=== PATIENT | female | born 2000 | race Caucasian/White ===

== ENCOUNTER → 2019-07-03 | Outpatient (CLI) | payer MEDICAID ==
--- NOTE | 2019-07-03 16:55 | RAD ---
Examination: PREG MORE THAN OR EQ TO 14 WKS History: Uterine size and date discrepancy Comparison/Correlation: OB ultrasound report dated 02/23/2019 Findings: OB ultrasound exam was performed. Single living intrauterine gestation with cephalic lie is present. Male gender noted. heart rate is 182 bpm. movement and cardiac activity noted. Three-vessel cord insertion is visualized by color Doppler imaging only. Four-chamber heart noted. Fluid within the urinary bladder is evident. stomach, kidneys, spine, and brain noted. Extremities are partially visualized. Maternal cervical length is 3.9 cm. Amniotic fluid index is normal measuring 10.3 cm. Biparietal diameter is 9.06 cm corresponding to 36 weeks 5 days. Head circumference is 32.53 cm corresponding to 36 weeks 6 days Abdominal circumference is 33.09 cm corresponding to 37 weeks 0 days Femur length is 7.16 cm corresponding 36 weeks 5 days Estimated weight is 3055 g Gestational age by ultrasound 36 weeks 6 days. EDC by ultrasound is 07/25/2019. Impression: Single living intrauterine gestation with cephalic lie is present. Average ultrasound age of 36 weeks 6 days is identified and this is one week less than expected by last menstrual period. Electronically signed by: Julius Ventura MD (07/03/2019 4:52 PM) [facility]– [place]
== END | disposition home or self-care (01) ==
LOC: US 13:16
PROVIDERS: ATTEND Obstetrics & Gynecology
DX: O26.843 Uterine size-date discrepancy, third trimester (principal); Z3A.36 36 weeks gestation of pregnancy
CPT/HCPCS: 76805

== ENCOUNTER 2019-10-28 03:57 | Emergency (ER) | payer SELFPAY ==
[~2019-10-28] VITALS: Ht 162.6 cm; Wt 83.9 kg
[2019-10-28] MEDS ORDERED: diphenhydrAMINE 50 MG/ML VIAL IVP ONE (04:15)
[2019-10-28] MEDS ORDERED: ONDANSETRON PF 4 MG/2 ML VIAL. IVP ONE (04:15)
[2019-10-28] MEDS ORDERED: IV NORMAL SALINE 1,000ML 1,000 ML IV ONE (04:15)
--- NOTE | 2019-10-28 04:27 | PHYS DOC ---
Adult General Chief Complaint Chief Complaint: NAUSEA/VOMITING/DIARRHEA HPI HPI 19-year-old female presents with left upper quadrant abdominal pain, nausea, and vomiting. The patient started to have this moderate cramping pain and nausea around 1:30 AM. She was about to go to bed where it started. She last ate dinner at 7:00. She smoked marijuana at 8:00. Patient has a history of cyclic vomiting. She denies trauma or injury. She denies fever or chills. She denies other drug use. Denies . (YAMIL WESTON DO) Review of Systems Review of Systems Constitutional: Denies fever or chills [] Eyes: Denies change in visual acuity, redness, or eye pain [] HENT: Denies nasal congestion or sore throat [] Respiratory: Denies cough or shortness of breath [] Cardiovascular: No additional information not addressed in HPI [] GI: Upper quadrant abdominal pain, nausea, vomiting. Denies bloody stools or diarrhea [] : Denies dysuria or hematuria [] Musculoskeletal: Denies back pain or joint pain [] Integument: Denies rash or skin lesions [] Neurologic: Denies headache, focal weakness or sensory changes [] Endocrine: Denies polyuria or polydipsia [] All other systems were reviewed and found to be within normal limits, except as documented in this note. (YAMIL WESTON DO) Current Medications Current Medications Current Medications Medications (Trade) Dose Ordered Sig/Bianca Start Time Stop Time Status Last Admin Dose Admin Diphenhydramine HCl (Benadryl) 50 mg 1X ONCE 10/28/19 04:15 10/28/19 04:16 UNV Ondansetron HCl (Zofran) 8 mg 1X ONCE 10/28/19 04:15 10/28/19 04:16 UNV Sodium Chloride 1,000 ml @ 1,000 mls/hr 1X ONCE 10/28/19 04:15 10/28/19 05:14 UNV (YAMIL WESTON DO) Physical Exam Physical Exam Constitutional: Well developed, obese, well nourished, mild acute distress, non- toxic appearance. [] HENT: Normocephalic, atraumatic, bilateral external ears normal, oropharynx moist, no oral exudates, nose normal. [] Eyes: PERRLA, EOMI, conjunctiva normal, no discharge. [] Neck: Normal range of motion, no tenderness, supple, no stridor. [] Cardiovascular: Heart rate regular rhythm, no murmur [] Lungs & Thorax: Bilateral breath sounds clear to auscultation [] Abdomen: Bowel sounds normal, soft, mild LUQ tenderness, no masses, no pulsatile masses. [] Skin: Warm, dry, no erythema, no rash. [] Back: No tenderness, no CVA tenderness. [] Extremities: No tenderness, no cyanosis, no clubbing, ROM intact, no edema. [] Neurologic: Alert and oriented X 3, normal motor function, normal sensory function, no focal deficits noted. [] Psychologic: Affect dramatic, judgement normal, mood anxious [] (YAMIL WESTON DO) EKG EKG [] (YAMIL WESTON DO) Radiology/Procedures Radiology/Procedures [] (YAMIL WESTON DO) Course & Med Decision Making Course & Med Decision Making Pertinent Labs and Imaging studies reviewed. (See chart for details) The patient was given 50 mg Benadryl, liter of normal saline, 8 mg Zofran, and 30 mg of Toradol. Her vomiting was controlled she continued to have left sided abdominal pain. CT scan preliminary read shows possible lesion in the left adnexa. I ordered a pelvic ultrasound rule out ovarian torsion. Her labs are snapped in for a white count 25. Differential is normal. She does not have a fever. I'm signing the patient out to Dr. Blanco at 0600 for further management and final disposition. [] (YAMIL WESTON DO) Course & Med Decision Making Wet read of the ultrasound showed a dominant left ovary follicle but no torsion. I went to check on the patient she was resting comfortably she said she felt better she's had multiple episodes of diarrhea given the CT scan findings I think that she has a viral gastroenteritis most likely. Noted the leukocytosis but the remainder the CT scan does not show any acute bacterial infection and the patient was feeling better in the emergency room and likely was the margination an otherwise healthy young female. Return precautions discussed in detail and she voiced understanding of instructions. (CARLOTTA BLANCO MD) Dragon Disclaimer Dragon Disclaimer This electronic medical record was generated, in whole or in part, using a voice recognition dictation system. (WESTON,YAMIL DO) Departure Departure: Impression: Primary Impression: Marijuana use Additional Impression: Abdominal pain Disposition: HOME, SELF-CARE Condition: STABLE Referrals: JONA CONTRERAS MD (PCP) Patient Instructions: Marijuana Abuse-Brief Scripts Ondansetron (ONDANSETRON ODT) 4 Mg Tab.rapdis 1 TAB PO PRN Q6-8HRS PRN for NAUSEA/VOMITING, #16 TAB Prov: CARLOTTA BLANCO MD 10/28/19 Problem Qualifiers Additional Impression: Abdominal pain Abdominal location: left upper quadrant Qualified Codes: R10.12 - Left upper quadrant pain YAMIL WESTON DO Oct 28, 2019 04:27 CARLOTTA BLANCO MD Oct 28, 2019 07:31
[2019-10-28] MEDS ORDERED: KETOROLAC 30 MG/ML VIAL. IVP ONE (04:30)
[2019-10-28 05:20] LABS: BASO # 0.1 x10^3/uL (0.0-0.2); BASO % 1 % (0-3); EOS % 0 % (0-3); HEMOGLOBIN 12.6 g/dL (12.0-15.5); LYMPH # 1.9 x10^3/uL (1.0-4.8); LYMPH % 7 % (24-48); MEAN CORPUSCULAR HEMOGLOBIN 21 pg (25-35); MEAN CORPUSCULAR HGB CONC 31 g/dL (31-37); MEAN CORPUSCULAR VOLUME 68 fL (79-100); MONO % 4 % (0-9); NEUT # 22.6 x10^3uL (1.8-7.7); NEUT % 88 % (31-73); PLATELET COUNT 287 x10^3/uL (140-400); RED BLOOD COUNT 5.88 x10^6/uL (3.50-5.40); RED CELL DISTRIBUTION WIDTH 15.3 % (11.5-14.5); WHITE BLOOD COUNT 25.7 x10^3/uL (4.0-11.0)
[2019-10-28 05:29] LABS: CALCIUM 9.1 mg/dL (8.5-10.1); CREATININE 0.9 mg/dL (0.6-1.0); GFR 79.8; POTASSIUM 3.7 mmol/L (3.5-5.1)
[2019-10-28] MEDS ORDERED: CONTRAST GIVEN MC PRN (05:30)
[2019-10-28 05:33] LABS: ALBUMIN 3.7 g/dL (3.4-5.0); ALBUMIN/GLOBULIN RATIO 0.9 (1.0-1.7); TOTAL BILIRUBIN 0.3 mg/dL (0.2-1.0); TOTAL PROTEIN 7.7 g/dL (6.4-8.2)
[2019-10-28 05:34] LABS: BARBITURATES NEG (NEG); BENZODIAZEPINES NEG (NEG); CANNABINOIDS POS (NEG); COCAINE NEG (NEG); METHADONE NEG (NEG); OPIATES NEG (NEG); PHENCYCLIDINE NEG (NEG)
[2019-10-28 05:41] LABS: BILIRUBIN,URINE NEG (NEG); CLARITY,URINE HAZY; COLOR,URINE AMBER; GLUCOSE,URINE NEG (NEG); NITRITE,URINE NEG (NEG); RBC,URINE OCC /HPF (0-2); UROBILINOGEN,URINE 0.2 mg/dL (0.2 mg/dL)
[2019-10-28 05:42] LABS: AMORPHOUS SEDIMENT,UR PRESENT /HPF; BACTERIA,URINE MOD /HPF (0-FEW); SQUAMOUS EPITHELIAL CELL,UR MOD /LPF
[2019-10-28 05:47] VITALS: BP 128/69
[2019-10-28 05:49] LABS: AMPHETAMINE/METHAMPHETAMINE NEG (NEG)
[2019-10-28] MEDS ORDERED: MORPHINE SULFATE 4 MG/ML DISP.SYRIN. IV ONE (06:00)
[2019-10-28] MEDS ORDERED: IOHEXOL 300 MG/ML 75 ML VIAL. IV ONE (06:00)
[2019-10-28 06:23] LABS: % BANDS 8 % (0-9); % LYMPHS 8 % (24-48); % MONOS 2 % (0-10); % SEGS 82 % (35-66); PLT ESTIMATE ADEQUATE (ADEQUATE)
[2019-10-28 06:24] LABS: HYPOCHROMIA SLIGHT; OVALOCYTES OCC
[2019-10-28 06:25] LABS: ANISOCYTOSIS SLIGHT; MICROCYTOSIS MOD; POLYCHROMASIA SLIGHT; TEAR DROP CELLS OCC
--- NOTE | 2019-10-28 06:29 | RAD ---
CT abdomen and pelvis with contrast: Reason for examination: Left upper quadrant and flank pain. Helical images were obtained through the abdomen pelvis with intravenous administration of 75 cc Omnipaque 300. Reconstruction was performed in sagittal and coronal planes. Exposure: One or more of the following individualized dose reduction techniques were utilized for this examination: 1. Automated exposure control 2. Adjustment of the mA and/or kV according to patient size 3. Use of iterative reconstruction technique. The lung bases are clear. The heart size is normal with no pericardial effusion. No abnormality seen at the liver, spleen, adrenal glands gallbladder or pancreas. The abdominal aorta and inferior vena cava show no acute abnormalities. The colon shows no diverticulosis or diverticulitis or colitis. No abnormality seen at the appendix. The small intestinal tract shows shows some fluid-filled small intestine in the pelvis but no abnormal dilatation or wall thickening. No abnormality seen at the stomach or duodenum. No bowel obstruction is seen. The kidneys show no renal masses, renal calculi, hydronephrosis or evidence of obstructive uropathy. The bladder is not distended. No abnormality seen at the uterus. The left ovary appears to contain a cystic lesion measuring approximately 1.7 cm in size. No free fluid or other adnexal masses are seen. No free air is seen in the abdomen or pelvis. No acute bony abnormalities are seen. IMPRESSION: 1.7 cm cystic-appearing lesion in the left ovary. Fluid-filled loops of small intestine within the pelvis but no abnormal dilatation or wall thickening seen. No other focal abnormality seen in the abdomen or pelvis. Electronically signed by: Yaz Ballesteros MD (10/28/2019 6:25 AM) [id number]
[2019-10-28] MEDS ORDERED: ONDA4TAB12 PO (07:29)
--- NOTE | 2019-10-28 07:48 | RAD ---
US PELVIS DATE: 10/28/2019 5:54 AM HISTORY: Left sided abdominal pain. LMP last week. Negative urine hCG. COMPARISON: CT abdomen pelvis 10/28/2019. TECHNIQUE: Transabdominal pelvic ultrasound was performed. FINDINGS: The uterus measures 8.4 x 4.4 x 3.3 cm. The myometrium demonstrates normal echogenicity without focal lesion. The endometrial echo measures 8 mm. The right ovary measures 3.6 x 1.8 x 3.1 cm. The left ovary measures 3.7 x 2.4 cm. The bilateral ovaries are physiologic in appearance. Left ovarian physiologic cyst measuring 1.5 cm. Normal vascularity in the bilateral ovaries by color Doppler examination. No free fluid. IMPRESSION: No evidence of ovarian torsion. Physiologic appearance of the uterus and ovaries. Electronically signed by: Rodolfo Estrella MD (10/28/2019 7:45 AM) [facility]
== END 2019-10-28 07:44 | disposition home or self-care (01) ==
LOC: ER 03:57
DX: F12.90 Cannabis use, unspecified, uncomplicated (principal); R10.12 Left upper quadrant pain; R11.2 Nausea with vomiting, unspecified
CPT/HCPCS: 36415; 74177; 76856; 80053; 80307; 81001; 81025; 83690; 85007; 85025; 87086; 96361; 96374; 96375; 99285; J1200; J1885; J2270; J2405; Q9967; J7030

== ENCOUNTER → 2020-04-03 | Outpatient (CLI) | payer MEDICAID ==
[~2020-04-03] MED LIST: ONDA4TAB12 PO
--- NOTE | 2020-04-03 09:37 | RAD ---
OB ultrasound greater than 14 weeks 04/03/2020 Clinical History: Second trimester . Size and dates. Technique: A real-time ultrasound examination of the gravid uterus was performed. Multiple images were obtained. Findings: There is a single living IUP. The fetus is in acephalic position. cardiac and somatic activity is seen. The heart rate is 158 beats per minutes. The maternal cervix is closed. It measures 3.02 cm in length. The placenta is in an anterior position. No abnormality is seen. The amniotic fluid volume is within normal limits. Neither maternal ovary is visualized. No adnexal mass is seen. The following measurements were obtained: BPD 4.7cm 20 weeks 2 days HC 17.7 cm 20weeks 1 days AC 14.5 cm 20weeks 0 days FL 3.6 cm 21 weeks 2 days The estimated gestational age by ultrasound is 20 weeks 3 days plus or minus a standard deviation of 10 days. The estimated date of delivery by ultrasound is 08/18/2020. No abnormality is seen. Specifically the stomach, bladder, kidneys, 3 vessel cord and cord insertion, four-chamber heart, cisterna magna, cerebellum, nose/mouth, spine and extremities are well-visualized and within normal limits. Impression: Single living IUP with an estimated gestational age by ultrasound of 20 weeks3 days +/- a standard deviation of 10 days. The estimated date of delivery by ultrasound is08/18/2020. Electronically signed by: Zoran Lloyd MD (04/03/2020 9:35 AM) [id number]
== END | disposition home or self-care (01) ==
LOC: US 08:00
PROVIDERS: ATTEND Obstetrics & Gynecology
DX: O26.842 Uterine size-date discrepancy, second trimester (principal); Z3A.20 20 weeks gestation of pregnancy
CPT/HCPCS: 76805

== ENCOUNTER 2020-04-11 06:49 | Emergency (ER) | payer MEDICAID ==
[~2020-04-11] VITALS: Ht 162.6 cm; Wt 90.9 kg
[2020-04-11] MEDS ORDERED: ONDANSETRON PF 4 MG/2 ML VIAL. IVP ONE (07:15)
[2020-04-11] MEDS ORDERED: hydrOXYzine PAMOATE 25 MG CAPSULE PO PRN (07:15)
[2020-04-11] MEDS ORDERED: IV NORMAL SALINE 1,000ML 1,000 ML IV SCH (07:15)
--- NOTE | 2020-04-11 07:22 | PHYS DOC ---
Past History Past Medical History: Anxiety, Other Additional Past Medical Histor: cyclic vomiting Past Surgical History: No Surgical History Alcohol Use: None Drug Use: Marijuana General Adult EDM: Chief Complaint: ABDOMINAL PAIN IN HPI: HPI: Patient is a 19-year-old female who presents to the emergency department for evaluation. She is approximately 21 weeks , her third , she has 1 live child and one prior . She states that over the past 2 days she has had increasing vomiting, and has run out of her Zofran which has helped her vomiting. She has also had some diarrhea. She tried smoking some marijuana but it did not improve her symptoms. She also reports some generalized upper abdominal pain. She denies any urinary symptoms, mid or lower abdominal pain, vaginal bleeding or discharge. There are no significant alleviating or exacerbating factors to the patient's symptoms. Patient has established care with an [employer]IG[employer] for this . She also does have a history of cyclic vomiting in the past. Review of Systems: Review of Systems: Constitutional: Denies fever or chills Eyes: Denies change in visual acuity HENT: Denies nasal congestion or sore throat Respiratory: Denies cough or shortness of breath Cardiovascular: Denies chest pain or edema GI: As per HPI. : Denies dysuria, vaginal bleeding, or discharge. Musculoskeletal: Denies back pain or joint pain Integument: Denies rash Neurologic: Denies headache, focal weakness or sensory changes Endocrine: Denies polyuria or polydipsia Lymphatic: Denies swollen glands Psychiatric: Denies depression or anxiety Heart Score: Risk Factors: Risk Factors: DM, Current or recent (<one month) smoker, HTN, HLP, family hist ory of CAD, obesity. Risk Scores: Score 0 - 3: 2.5% MACE over next 6 weeks - Discharge Home Score 4 - 6: 20.3% MACE over next 6 weeks - Admit for Clinical Observation Score 7 - 10: 72.7% MACE over next 6 weeks - Early Invasive Strategies Current Medications: Current Meds: Current Medications Medications (Trade) Dose Ordered Sig/Bianca Start Time Stop Time Status Last Admin Dose Admin Hydroxyzine Pamoate (Vistaril) 50 mg PRN 1X PRN 04/11/20 07:15 Ondansetron HCl (Zofran) 4 mg 1X ONCE 04/11/20 07:15 04/11/20 07:19 DC Sodium Chloride 1,000 ml @ 1,000 mls/hr Q1H 04/11/20 07:15 04/11/20 08:14 Allergies: Allergies: Allergies Coded Allergies Type Severity Reaction Last Updated Verified No Known Drug Allergies 10/28/19 No Physical Exam: PE: PHYSICAL EXAM: CONSTITUTIONAL: Well developed, well nourished HEAD: normocephalic, atraumatic EENT: PERRL, EOMI. Conjunctivae normal color, sclerae non-icteric; moist mucous membranes. NECK: Supple, non-tender; no meningismus. LUNGS: Lungs CTA, breathing even and unlabored. Normal air movement. HEART: Regular rate and rhythm, no murmur CHEST: No deformity; non-tender ABDOMEN: The abdomen is soft, there is mild diffuse abdominal tenderness to palpation to the entire abdomen, without rebound or guarding, the right upper quadrant is slightly more prominently tender than the remainder the abdomen, bowel sounds are present. The uterus is palpable just below the umbilicus. There is no definite uterine tenderness to palpation. EXTREM: Normal ROM; no deformity, no calf tenderness. Normal pulses palpable in all extremities. There is no pedal edema. SKIN: No rash; no diaphoresis NEURO: Alert; normal speech and cognition; CN's grossly intact; strength grossly intact without focal deficit. BACK: There is mild left-sided CVA tenderness to palpation. There is no right- sided CVA TTP. Current Patient Data: Labs: Laboratory Tests Test 04/11/20 07:35 04/11/20 08:44 White Blood Count 14.6 x10^3/uL Red Blood Count 5.23 x10^6/uL Hemoglobin 11.5 g/dL Hematocrit 35.9 % Mean Corpuscular Volume 69 fL Mean Corpuscular Hemoglobin 22 pg Mean Corpuscular Hemoglobin Concent 32 g/dL Red Cell Distribution Width 15.4 % Platelet Count 240 x10^3/uL Neutrophils (%) (Auto) 87 % Lymphocytes (%) (Auto) 10 % Monocytes (%) (Auto) 3 % Eosinophils (%) (Auto) 0 % Basophils (%) (Auto) 0 % Neutrophils # (Auto) 12.7 x10^3uL Lymphocytes # (Auto) 1.5 x10^3/uL Monocytes # (Auto) 0.4 x10^3/uL Eosinophils # (Auto) 0.0 x10^3/uL Basophils # (Auto) 0.0 x10^3/uL Platelet Estimate Pending Sodium Level 136 mmol/L Potassium Level 3.4 mmol/L Chloride Level 102 mmol/L Carbon Dioxide Level 24 mmol/L Anion Gap 10 Blood Urea Nitrogen 10 mg/dL Creatinine 0.7 mg/dL Estimated GFR (Cockcroft-Gault) 106.7 BUN/Creatinine Ratio 14 Glucose Level 146 mg/dL Calcium Level 8.9 mg/dL Total Bilirubin 0.3 mg/dL Aspartate Amino Transf (AST/SGOT) 9 U/L Alanine Aminotransferase (ALT/SGPT) 14 U/L Alkaline Phosphatase 69 U/L Total Protein 7.1 g/dL Albumin 3.3 g/dL Albumin/Globulin Ratio 0.9 Lipase 45 U/L Urine Collection Type Unknown Urine Color Yellow Urine Clarity Hazy Urine pH 7.0 Urine Specific Benld 1.025 Urine Protein 100 mg/dl Urine Glucose (UA) Neg mg/dL Urine Ketones (Stick) >=160 mg/dL Urine Blood Neg Urine Nitrite Neg Urine Bilirubin Neg Urine Urobilinogen Dipstick 0.2 mg/dL Urine Leukocyte Esterase Neg Urine RBC 3-5 /HPF Urine WBC 5-10 /HPF Urine Squamous Epithelial Cells Few /LPF Urine Bacteria 0 /HPF Urine Mucus Mod /LPF Current Medications Medications (Trade) Dose Ordered Sig/Bianca Route PRN Reason Start Time Stop Time Status Last Admin Dose Admin Hydroxyzine Pamoate (Vistaril) 50 mg PRN 1X PRN PO ITCHING 04/11/20 07:15 04/11/20 07:35 Sodium Chloride 1,000 ml @ 1,000 mls/hr Q1H IV 04/11/20 07:15 04/11/20 08:14 DC 04/11/20 07:26 Ondansetron HCl (Zofran) 4 mg 1X ONCE IVP 04/11/20 07:15 04/11/20 07:19 DC 04/11/20 07:26 Vital Signs: Vital Signs Date Time Temp Pulse Resp B/P (MAP) Pulse Ox O2 Delivery O2 Flow Rate FiO2 04/11/20 07:00 98.1 91 20 131/91 (104) 99 Room Air EKG: EKG: [] Radiology/Procedures: Radiology/Procedures: PROCEDURE: ABDOMEN LTD ABDOMEN LTD INDICATION: Reason: NV, RUQ Pain / Spl. Instructions: / History: COMPARISON: CT 10/28/2019. TECHNIQUE: Limited transverse and longitudinal grayscale images of the right upper quadrant with color and pulsed doppler utilized as appropriate. FINDINGS: The liver demonstrates normal echogenicity without focal lesions. The liver measures 17.7 cm. The portal vein is patent with normal antegrade flow. The gallbladder is normal in appearance without stones. No wall thickening or pericholecystic fluid. Negative sonographic Adan's sign. No intrahepatic or extrahepatic biliary dilatation. The common bile duct measures 0.2 cm. The visualized portions of the pancreas demonstrate normal echogenicity without focal lesions. The right kidney has normal echogenicity and measures 11 cm. No hydronephrosis, shadowing stones or suspicious masses seen. No ascites or fluid collections. The aorta and IVC are normal diameter where visualized. IMPRESSION: Normal gallbladder. Normal caliber common bile duct.[] Course & Med Decision Making: Course & Med Decision Making Pertinent Labs and Imaging studies reviewed. (See chart for details) [] 9:45 AM: The patient's condition remains stable. She is feeling significantly better, has had no further vomiting. Discussed test results with the patient, the need for close OB follow-up, the importance of marijuana use cessation, and return precautions. Dragon Disclaimer: Dragon Disclaimer: This electronic medical record was generated, in whole or in part, using a voice recognition dictation system. Departure Departure: Impression: Primary Impression: Abdominal pain affecting Additional Impression: Nausea & vomiting Disposition: 01 HOME/RESIDENCE PRIOR TO ADM Condition: STABLE Referrals: SUSAN HAYWOOD JR, MD (PCP) Patient Instructions: Abdominal Pain (Nonspecific), Abdominal Pain During , Cyclic Vomiting Syndrome, Marijuana Abuse and Chemical Dependency, Nausea and Vomiting Scripts Ondansetron (ONDANSETRON ODT) 4 Mg Tab.rapdis 1 TAB PO PRN Q6-8HRS for N/V, #30 TAB Prov: SUMMER PICKENS MD 04/11/20 Justification of Admission: Justification of Admission: Justification of Admission Dx: N/A SUMMER PICKENS MD Apr 11, 2020 07:22
[2020-04-11 08:05] LABS: BASO % 0 % (0-3); CALCIUM 8.9 mg/dL (8.5-10.1); CREATININE 0.7 mg/dL (0.6-1.0); EOS % 0 % (0-3); GFR 106.7; HEMATOCRIT 35.9 % (36.0-47.0); HEMOGLOBIN 11.5 g/dL (12.0-15.5); LYMPH # 1.5 x10^3/uL (1.0-4.8); LYMPH % 10 % (24-48); MEAN CORPUSCULAR HEMOGLOBIN 22 pg (25-35); MEAN CORPUSCULAR HGB CONC 32 g/dL (31-37); MEAN CORPUSCULAR VOLUME 69 fL (79-100); MONO # 0.4 x10^3/uL (0.0-1.1); MONO % 3 % (0-9); NEUT # 12.7 x10^3uL (1.8-7.7); NEUT % 87 % (31-73); PLATELET COUNT 240 x10^3/uL (140-400); POTASSIUM 3.4 mmol/L (3.5-5.1); RED BLOOD COUNT 5.23 x10^6/uL (3.50-5.40); RED CELL DISTRIBUTION WIDTH 15.4 % (11.5-14.5); WHITE BLOOD COUNT 14.6 x10^3/uL (4.0-11.0)
--- NOTE | 2020-04-11 08:10 | RAD ---
ABDOMEN LTD INDICATION: Reason: NV, RUQ Pain / Spl. Instructions: / History: COMPARISON: CT 10/28/2019. TECHNIQUE: Limited transverse and longitudinal grayscale images of the right upper quadrant with color and pulsed doppler utilized as appropriate. FINDINGS: The liver demonstrates normal echogenicity without focal lesions. The liver measures 17.7 cm. The portal vein is patent with normal antegrade flow. The gallbladder is normal in appearance without stones. No wall thickening or pericholecystic fluid. Negative sonographic Adan's sign. No intrahepatic or extrahepatic biliary dilatation. The common bile duct measures 0.2 cm. The visualized portions of the pancreas demonstrate normal echogenicity without focal lesions. The right kidney has normal echogenicity and measures 11 cm. No hydronephrosis, shadowing stones or suspicious masses seen. No ascites or fluid collections. The aorta and IVC are normal diameter where visualized. IMPRESSION: Normal gallbladder. Normal caliber common bile duct. Electronically signed by: Rodolfo Estrella MD (04/11/2020 8:07 AM) [id number]
[2020-04-11 08:11] LABS: ALBUMIN 3.3 g/dL (3.4-5.0); ALBUMIN/GLOBULIN RATIO 0.9 (1.0-1.7); TOTAL BILIRUBIN 0.3 mg/dL (0.2-1.0); TOTAL PROTEIN 7.1 g/dL (6.4-8.2)
[2020-04-11 09:30] VITALS: BP 117/48
[2020-04-11 09:37] LABS: BILIRUBIN,URINE NEG (NEG); CLARITY,URINE HAZY; COLOR,URINE YELLOW; GLUCOSE,URINE NEG (NEG)
[2020-04-11 09:38] LABS: BACTERIA,URINE 0 /HPF (0-FEW); NITRITE,URINE NEG (NEG); SQUAMOUS EPITHELIAL CELL,UR FEW /LPF; UROBILINOGEN,URINE 0.2 mg/dL (0.2 mg/dL)
[2020-04-11] MEDS ORDERED: ONDA4TAB12 PO (09:47)
[2020-04-11 15:30] LABS: ANISOCYTOSIS MOD; HYPOCHROMIA MOD; MICROCYTOSIS MOD
[2020-04-11 15:32] LABS: PLT ESTIMATE ADEQUATE (ADEQUATE)
== END 2020-04-11 09:55 | disposition home or self-care (01) ==
LOC: ER 06:49
DX: O21.9 Vomiting of pregnancy, unspecified (principal); R10.84 Generalized abdominal pain; R19.7 Diarrhea, unspecified; Z3A.21 21 weeks gestation of pregnancy
CPT/HCPCS: 36415; 76705; 80053; 81001; 83690; 85025; 87086; 96361; 96374; 99284; J2405; J7030; Q0177

== ENCOUNTER 2020-04-19 04:59 | Emergency (ER) | payer MEDICAID ==
[~2020-04-19] VITALS: Ht 162.6 cm; Wt 90.9 kg
[2020-04-19] MEDS ORDERED: IV NORMAL SALINE 1,000ML 1,000 ML IV ONE (05:15)
[2020-04-19] MEDS ORDERED: METOCLOPRAMIDE HCL 10 MG/2 ML VIAL. IVP ONE (05:15)
[2020-04-19] MEDS ORDERED: FAMOTIDINE 20 MG/2 ML VIAL IVP ONE (05:15)
[2020-04-19] MEDS ORDERED: diphenhydrAMINE 50 MG/ML VIAL IVP ONE (05:15)
[2020-04-19 05:26] LABS: BASO # 0.1 x10^3/uL (0.0-0.2); BASO % 1 % (0-3); EOS # 0.1 x10^3/uL (0.0-0.7); EOS % 1 % (0-3); HEMATOCRIT 35.6 % (36.0-47.0); HEMOGLOBIN 11.4 g/dL (12.0-15.5); LYMPH % 16 % (24-48); MEAN CORPUSCULAR HEMOGLOBIN 23 pg (25-35); MEAN CORPUSCULAR HGB CONC 32 g/dL (31-37); MEAN CORPUSCULAR VOLUME 71 fL (79-100); MONO # 0.4 x10^3/uL (0.0-1.1); MONO % 3 % (0-9); NEUT # 9.7 x10^3uL (1.8-7.7); NEUT % 79 % (31-73); PLATELET COUNT 230 x10^3/uL (140-400); RED BLOOD COUNT 5.05 x10^6/uL (3.50-5.40); RED CELL DISTRIBUTION WIDTH 15.4 % (11.5-14.5); WHITE BLOOD COUNT 12.3 x10^3/uL (4.0-11.0)
[2020-04-19 05:34] LABS: CALCIUM 8.9 mg/dL (8.5-10.1); CREATININE 0.8 mg/dL (0.6-1.0); GFR 91.4; POTASSIUM 3.4 mmol/L (3.5-5.1)
[2020-04-19 05:35] LABS: HYPOCHROMIA SLIGHT; PLT ESTIMATE ADEQUATE (ADEQUATE)
[2020-04-19 05:36] LABS: ANISOCYTOSIS SLIGHT; MICROCYTOSIS MOD
[2020-04-19 05:40] LABS: ALBUMIN 3.3 g/dL (3.4-5.0); ALBUMIN/GLOBULIN RATIO 0.8 (1.0-1.7); MAGNESIUM 1.6 mg/dL (1.8-2.4); TOTAL BILIRUBIN 0.2 mg/dL (0.2-1.0); TOTAL PROTEIN 7.2 g/dL (6.4-8.2)
--- NOTE | 2020-04-19 05:44 | PHYS DOC ---
Past History Past Medical History: Anxiety, Other Additional Past Medical Histor: cyclic vomiting (BLANCA GALO DO) Past Surgical History: No Surgical History (BLANCA GALO DO) Alcohol Use: None Drug Use: Marijuana (BLANCA GALO DO) General Adult EDM: Chief Complaint: ABDOMINAL PAIN IN HPI: HPI: 19-year-old female [id number] presents with report of sudden nausea vomiting and diarrhea that started at 0100 this morning. Denies known sick contacts. Patient is 22 weeks . Per [place] review patient does have a past medical history of cyclic vomiting syndrome and marijuana abuse. Denies travel. Denies fever or chills. Patient also in ED on 04/11/20 for same. US of abdomen without signs of acute cholecystitis. Patient reports last used THC approximately 2 weeks ago. (BLANCA GALO DO) Review of Systems: Review of Systems: Constitutional: Denies fever or chills Eyes: Denies redness or eye pain HENT: Denies nasal congestion or sore throat Respiratory: Denies cough or shortness of breath Cardiovascular: Denies chest pain or palpitations GI: Reports abdominal pain, nausea, vomiting, and diarrhea /CERTIFIED REGISTERED NURSE PRACTITIONER: Denies dysuria or hematuria; denies vaginal bleeding or discharge; reports Musculoskeletal: Denies back pain or joint pain Integument: Denies rash or skin lesions Neurologic: Denies headache, focal weakness or sensory changes Complete systems were reviewed and found to be within normal limits, except as documented in this note. (BLANCA GALO DO) Current Medications: Current Meds: Current Medications Medications (Trade) Dose Ordered Sig/Bianca Start Time Stop Time Status Last Admin Dose Admin Diphenhydramine HCl (Benadryl) 25 mg 1X ONCE 04/19/20 05:15 04/19/20 05:16 UNV 04/19/20 05:15 25 MG Famotidine (Pepcid Vial) 20 mg 1X ONCE 04/19/20 05:15 04/19/20 05:16 UNV 04/19/20 05:15 20 MG Metoclopramide HCl (Reglan Vial) 10 mg 1X ONCE 04/19/20 05:15 04/19/20 05:16 UNV 04/19/20 05:15 10 MG Sodium Chloride 1,000 ml @ 1,000 mls/hr 1X ONCE 04/19/20 05:15 04/19/20 06:14 UNV 04/19/20 05:14 1,000 MLS/HR (BLANCA GALO DO) Allergies: Allergies: Allergies Coded Allergies Type Severity Reaction Last Updated Verified No Known Drug Allergies 10/28/19 No (BLANCA GALO DO) Physical Exam: PE: Constitutional: Well developed, well nourished, histrionic, and gagging herself HENT: Normocephalic, atraumatic Eyes: Conjunctiva normal, no discharge Neck: Normal range of motion, supple Lungs & Thorax: No respiratory distress, equal chest rise and fall Abdomen: Soft, diffuse tenderness, gravid, no guarding/rebound tenderness Skin: Warm, dry, no erythema, no rash Extremities: No tenderness, ROM intact, no edema Neurologic: Alert and oriented X 3, no focal deficits noted Psychologic: Affect anxious, judgment normal (BLANCA GALO DO) Current Patient Data: Labs: Laboratory Tests Test 04/19/20 05:04 White Blood Count 12.3 x10^3/uL (4.0-11.0) H Red Blood Count 5.05 x10^6/uL (3.50-5.40) Hemoglobin 11.4 g/dL (12.0-15.5) L Hematocrit 35.6 % (36.0-47.0) L Mean Corpuscular Volume 71 fL (79-100) L Mean Corpuscular Hemoglobin 23 pg (25-35) L Mean Corpuscular Hemoglobin Concent 32 g/dL (31-37) Red Cell Distribution Width 15.4 % (11.5-14.5) H Platelet Count 230 x10^3/uL (140-400) Neutrophils (%) (Auto) 79 % (31-73) H Lymphocytes (%) (Auto) 16 % (24-48) L Monocytes (%) (Auto) 3 % (0-9) Eosinophils (%) (Auto) 1 % (0-3) Basophils (%) (Auto) 1 % (0-3) Neutrophils # (Auto) 9.7 x10^3uL (1.8-7.7) H Lymphocytes # (Auto) 2.0 x10^3/uL (1.0-4.8) Monocytes # (Auto) 0.4 x10^3/uL (0.0-1.1) Eosinophils # (Auto) 0.1 x10^3/uL (0.0-0.7) Basophils # (Auto) 0.1 x10^3/uL (0.0-0.2) Platelet Estimate Adequate (ADEQUATE) Hypochromasia Slight Anisocytosis Slight Microcytosis Mod (BLANCA GALO DO) EKG: EKG: [] (BLANCA GALO DO) Radiology/Procedures: Radiology/Procedures: [] (BLANCA GALO DO) Course & Med Decision Making: Course & Med Decision Making Pertinent Labs and Imaging studies reviewed. (See chart for details) Patient presents as Ab1 at approximately 22 weeks gestation with report of sudden abdominal pain with associated nausea/vomiting/diarrhea that started at 0100 this morning. Patient does have history of cyclic vomiting syndrome as well as marijuana abuse. Seen recently in ED for same on 04/11/20. Labs obtained and pending. Symptomatic treatment provided. IV fluid hydration given. OB ultrasound pending. 0600-signout given to Dr. Li for further evaluation and final disposition. Discussed current findings and plan with patient, who acknowledges understanding and agreement. (BLANCA GALO DO) Course & Med Decision Making Patient wants to go home. Work up negative. Recommended tylenol for pain at home. (MARTHA BRIGGS MD) Dragon Disclaimer: Dragon Disclaimer: This electronic medical record was generated, in whole or in part, using a voice recognition dictation system. (BLANCA GALO DO) Departure Departure: Impression: Primary Impression: Intractable nausea and vomiting Additional Impression: Qualified Codes: Z3A.22 - 22 weeks gestation of Disposition: HOME/RESIDENCE PRIOR TO ADM Condition: STABLE Referrals: SUSAN HAYWOOD JR, MD (PCP) Patient Instructions: Cyclic Vomiting Syndrome, Hyperemesis Gravidarum Justification of Admission: Justification of Admission: Justification of Admission Dx: N/A (BLANCA GALO DO) BLANCA GALO DO Apr 19, 2020 05:44 MARTHA BRIGGS MD Apr 19, 2020 08:27
[2020-04-19] MEDS ORDERED: ACETAMINOPHEN 500 MG TABLET PO ONE ×2 (06:11→06:30)
[2020-04-19] MEDS ORDERED: ONDANSETRON PF 4 MG/2 ML VIAL. ONE (06:37)
[2020-04-19 06:45] LABS: BARBITURATES NEG (NEG); BENZODIAZEPINES NEG (NEG); CANNABINOIDS POS (NEG); COCAINE NEG (NEG); METHADONE NEG (NEG); OPIATES NEG (NEG); PHENCYCLIDINE NEG (NEG)
[2020-04-19] MEDS ORDERED: ONDANSETRON PF 4 MG/2 ML VIAL. IVP ONE (06:45)
[2020-04-19 06:47] LABS: BACTERIA,URINE 0 /HPF (0-FEW); BILIRUBIN,URINE NEG (NEG); CLARITY,URINE CLEAR; COLOR,URINE YELLOW; GLUCOSE,URINE 100 mg/dL (NEG); NITRITE,URINE NEG (NEG); RBC,URINE 0 /HPF (0-2); SQUAMOUS EPITHELIAL CELL,UR FEW /LPF; UROBILINOGEN,URINE 0.2 mg/dL (0.2 mg/dL)
[2020-04-19 06:48] LABS: AMORPHOUS SEDIMENT,UR PRESENT /HPF; HYALINE CASTS, URINE FEW /HPF
[2020-04-19 06:51] LABS: AMPHETAMINE/METHAMPHETAMINE NEG (NEG)
--- NOTE | 2020-04-19 07:22 | RAD ---
PREG MORE THAN OR EQ TO 14 WKS Clinical Indication: Reason: abdominal pain at approximately 22 weeks Comparison: 04/03/2020 Technique: Multiple grayscale images, color Doppler, and M-mode images of the uterus are obtained transabdominally. Findings: There is a single intrauterine gestation in cephalic presentation. The placenta is anterior in location without evidence of placenta previa. The amount of amniotic fluid appears appropriate. Amniotic fluid index is 12.9 cm. Cervical length is 4.8 cm. Biometrical data: BPD = 5.0 cm for 21 weeks 2 days. HC = 20.0 cm for 22 weeks 0 days. AC = 18.0 cm for 22 weeks 5 days. FL = 3.8 cm for 22 weeks 1 days. CI ratio = 76.1. HC/AC ratio = 1.11. FL/HC ratio = 19.2. FL/AC ratio = 21.2. Overall, the estimated sonographic gestational age is 22 weeks 0 days for an estimated date of delivery of 08/23/2020. The estimated date of delivery provided by the last menstrual period is 08/19/2020. Estimated weight is 498 grams. The estimated heart rate is 140 beats per minute. Impression: Single live intrauterine gestation with estimated sonographic gestational age of 22 weeks 0 days. Electronically signed by: Rodolfo Estrella MD (04/19/2020 7:19 AM) [place]
[2020-04-19] MEDS ORDERED: HALOPERIDOL LACT 5 MG/ML VIAL. IVP ONE (08:00)
[2020-04-19 08:26] VITALS: BP 124/58
== END 2020-04-19 08:38 | disposition home or self-care (01) ==
LOC: ER 04:59
DX: O21.9 Vomiting of pregnancy, unspecified (principal); Z3A.22 22 weeks gestation of pregnancy
CPT/HCPCS: 36415; 76805; 80053; 80307; 81001; 83690; 83735; 84702; 85025; 96361; 96374; 96375; 99284; J1200; J1630; J2405; J2765; J3490; J7030

== ENCOUNTER 2021-03-22 13:20 | Emergency (ER) | payer MEDICAID ==
[~2021-03-22] VITALS: Ht 162.6 cm; Wt 95.4 kg
[2021-03-22] MEDS ORDERED: METOCLOPRAMIDE HCL 10 MG/2 ML VIAL. IVP ONE (13:45)
[2021-03-22] MEDS ORDERED: IV NORMAL SALINE 1,000ML 1,000 ML IV ONE ×2 (13:45→15:00)
[2021-03-22] MEDS ORDERED: KETOROLAC 30 MG/ML VIAL. IVP ONE (13:45)
[2021-03-22] MEDS ORDERED: diphenhydrAMINE 50 MG/ML VIAL IVP ONE (13:45)
--- NOTE | 2021-03-22 16:16 | PHYS DOC ---
Past History Past Medical History: No Pertinent History Additional Past Medical Histor: cyclic vomiting Past Surgical History: No Surgical History Alcohol Use: Occasionally Drug Use: Marijuana Adult General Chief Complaint Chief Complaint: HEADACHE HPI HPI Patient is a 20-year-old female complains of a headache that started last night. Patient states she has a history of migraines, states this is consistent with her migraines. Patient denies this being the worst headache she is ever had. Patient denies a thunderclap presentation. Patient states she feels a little nauseated, has not vomited today. Patient denies any recent fever or chills. Patient denies any pain to her neck. Patient denies nasal congestion chest congestion chest pains or shortness of breath. Patient denies any other physical complaints or physical concerns. Patient states her last menstrual cycle was last year some time stating that she has not had a menstrual cycle since she started the Nexplanon. Patient denies taking prescription medications, denies allergies to medications. Patient states she has no primary care provider. Patient states she does not smoke cigarettes, smokes marijuana occasionally, drinks alcohol occasionally. Patient reports she gets headaches 2-3 times a week, she can usually take care of them with [id number] Tylenol or Motrin. Patient did states that she smokes marijuana today to try to get rid of her headache but it did not work. Review of Systems Review of Systems 14 body systems of review of systems have been reviewed. See HPI for pertinent positives and negative responses, otherwise all other systems are negative, nonpertinent or noncontributory. Current Medications Current Medications Current Medications Medications (Trade) Dose Ordered Sig/Bianca Start Time Stop Time Status Last Admin Dose Admin Diphenhydramine HCl (Benadryl) 25 mg 1X ONCE 03/22/21 13:45 03/22/21 13:46 DC 03/22/21 14:03 25 MG Ketorolac Tromethamine (Toradol 30mg Vial) 30 mg 1X ONCE 03/22/21 13:45 03/22/21 13:46 DC 03/22/21 14:03 30 MG Metoclopramide HCl (Reglan Vial) 10 mg 1X ONCE 03/22/21 13:45 03/22/21 13:46 DC 03/22/21 14:02 10 MG Sodium Chloride 1,000 ml @ 1,000 mls/hr 1X ONCE 03/22/21 15:00 03/22/21 15:59 DC 03/22/21 15:00 1,000 MLS/HR Allergies Allergies Allergies Coded Allergies Type Severity Reaction Last Updated Verified No Known Drug Allergies 03/22/21 No Physical Exam Physical Exam Constitutional: Well developed, well nourished, no acute distress, non-toxic appearance. 20-year-old female holding her hand over her eyes reporting the light hurts her eyes. Otherwise is in no obvious distress. HENT: Normocephalic, atraumatic, bilateral external ears normal, oropharynx moist, no oral exudates, nose normal. Bilateral TMs within normal limits, no drainage from bilateral external auditory canals, no lymphadenopathy of the head or neck appreciated, oropharynx moist, pink, no deep tissue infectious process appreciated, no laryngeal edema, patient speaking in normal voice tones. Eyes: PERRLA, EOMI, conjunctiva normal, no discharge. Patient is photophobic. Neck: Normal range of motion, no tenderness, supple, no stridor. No meningeal signs, no nuchal rigidity. Cardiovascular:Heart rate regular rhythm, no murmur, heart sounds S1-S2 to a uscultation. Lungs & Thorax: Bilateral breath sounds clear to auscultation no adventitious lung sounds appreciated. Abdomen: Bowel sounds normal, soft, no tenderness, no masses, no pulsatile masses. Skin: Warm, dry, no erythema, no rash. Back: No tenderness, no CVA tenderness. Extremities: No tenderness, no cyanosis, no clubbing, ROM intact, no edema. Neurologic: Alert and oriented X 3, normal motor function, normal sensory function, no focal deficits noted. Psychologic: Affect normal, judgement normal, mood normal. Current Patient Data Vital Signs Vital Signs Date Time Temp Pulse Resp B/P (MAP) Pulse Ox O2 Delivery O2 Flow Rate FiO2 03/22/21 13:35 98.8 83 18 149/81 (103) 98 Room Air EKG EKG [] Radiology/Procedures Radiology/Procedures [] Heart Score C/O Chest Pain: No Risk Factors: Risk Factors: DM, Current or recent (<one month) smoker, HTN, HLP, family history of CAD, obesity. Risk Scores: Risk Factors: DM, Current or recent (<one month) smoker, HTN, HLP, family history of CAD, obesity. Course & Med Decision Making Course & Med Decision Making Pertinent Labs and Imaging studies reviewed. (See chart for details) 20-year-old female, vital signs reviewed, presents emergency department complaining of a migraine headache. Patient states that when she gets these headaches usually comes to the emergency department and gets "headache cocktail "in her headache goes away. Physical examination nonconcerning for meningitis, this was not a thunderclap presentation, patient states this is not the worst headache she is ever had in her life. Will order headache cocktail of 1 L normal saline, 25 mg IV Benadryl, 30 mg IV Toradol, 10 mg Reglan. Will reexamine patient after period time. After reexamination of the patient, patient states her headache is down to 1 or 2, will give 1 more liter of normal saline. After reexamination of the patient, patient states her headache is gone now and she wishes to go home. Patient remains nontoxic in appearance, reviewed headache instructions with patient, patient gave verbal understanding discharge home instructions, follow-up with PCP will call on Wednesday, return to ER precautions and concerns, patient had no further questions or concerns and was discharged home without incident. Dragon Disclaimer Dragon Disclaimer This electronic medical record was generated, in whole or in part, using a voice recognition dictation system. Departure Departure: Impression: Primary Impression: Headache Disposition: HOME / SELF CARE / HOMELESS Condition: GOOD Referrals: PCP,NO (PCP) Patient Instructions: Headache, FAQs Additional Instructions: You were seen today in the emergency department for headache, you were given a headache cocktail through an IV that relieved your headache symptoms. We have discussed you increasing your fluid intake to help prevent further headaches. Please follow-up with your primary healthcare provider of your choice, if you choose, you may use the [facility] group on [address], [place], [address], telephone number [phone]. Please return to the emergency department for worsening symptoms or other concerns. EMERGENCY DEPARTMENT GENERAL DISCHARGE INSTRUCTIONS Thank you for coming to [facility] (ED) today and trusting us with you care. We trust that you had a positivie experience in our Emergency Department. If you wish to speak to the department management, you may call the director at [phone]. YOUR FOLLOW UP INSTRUCTIONS ARE FOLLOWS: 1. Do you have a private Doctor? If you do not have a private doctor, please ask for a resource list of physicians or clinics that may be able to assist you with follow up care. 2. The Emergency Physician has interpreted your x-rays. The X-Ray specialist will also review them. If there is a change in the findings, you will be notified in 48 hours when at all possible. 3. A lab test or culture has been done, your results will be reviewed and you will be notified if you need a change in treatment. ADDITIONAL INSTRUCTIONS AND INFORMATION: 1. Your care today has been supervised by a physician who is specially trained in emergency care. Many problems require more than one evaluation for a complete diagnosis and treatment. We recommend that you schedule your follow up appointment as recommended to ensure complete treatment of you illness or injury. If you are unable to obtain follow up care and continue to have a problem, or if your condition worsens, we recommend that you return to the ED. 2. We are not able to safely determine your condition over the phone nor are we able to give sound medical advice over the phone. For these safety reasons, if you call for medical advice we will ask you to come to the ED for further evaluation. 3. If you have any questions regarding these discharge instructions please call the ED at [phone]. SAFETY INFORMATION: In the interest of safety, wellness, and injury prevention; we encourage you to wear your sealbelt, if you smoke; quite smoking, and we encourage family to use a protective helmet for bicycling and other sporting events that present an increased risk for head injury. IF YOUR SYMPTOMS WORSEN OR NEW SYMPTOMS DEVELOP, OR YOU HAVE CONCERNS ABOUT YOUR CONDITION; OR IF YOUR CONDITION WORSENS WHILE YOU ARE WAITING FOR YOUR FOLLOW UP APPOINTMENT; EITHER CONTACT YOUR PRIMARY CARE DOCTOR, THE PHYSICIAN WHOSE NAME AND NUMBER YOU WERE GIVEN, OR RETURN TO THE ED IMMEDIATELY. Problem Qualifiers Primary Impression: Headache Headache type: unspecified Headache chronicity pattern: episodic headache Intractability: not intractable Qualified Codes: R51.9 - Headache, unspecified BLANCA PERES APRN Mar 22, 2021 16:16
[2021-03-22 16:17] VITALS: BP 124/80
== END 2021-03-22 16:25 | disposition home or self-care (01) ==
LOC: ER 13:20
DX: G43.909 Migraine, unspecified, not intractable, without status migrainosus (principal)
CPT/HCPCS: 96361; 96374; 96375; 99284; J1200; J1885; J2765; J7030